=== PATIENT | male | born 1960 | race Caucasian/White ===

== ENCOUNTER 2016-12-03 07:58 | Outpatient (CLI) | payer OTHER ==
--- NOTE | 2016-12-03 08:21 | RAD ---
PA AND LATERAL CHEST: Date: 12-03-16 History: Dyspnea. Comparison: 10-27-16 FINDINGS: Cardiac silhouette and pulmonary vasculature are within normal limits. Lungs are expanded and clear. There has been no interval change from prior exam. IMPRESSION: No acute cardiopulmonary process. POS: [facility]
== END 2016-12-03 07:59 | disposition home or self-care (01) ==
LOC: RAD 07:58
PROVIDERS: ATTEND Internal Medicine Critical Care Medicine
DX: R06.00 Dyspnea, unspecified (principal)
CPT/HCPCS: 71020

== ENCOUNTER 2016-12-24 13:36 | Outpatient (CLI) | payer OTHER ==
--- NOTE | 2016-12-24 15:04 | RAD ---
PA AND LATERAL CHEST: History: Dyspnea. FINDINGS: Comparison is made with exam of 12-03-16. The heart size is normal. The lungs are expanded without focal areas of consolidation, pneumothorax or pleural effusions. There are mild degenerative changes in the spine. IMPRESSION: No radiographic evidence of acute cardiopulmonary process. POS: [facility]
--- NOTE | 2016-12-24 15:44 | NM ---
NUCLEAR MEDICINE VENTILATION PERFUSION SCAN: (V/Q SCAN) 12/24/16 HISTORY: 56-year-old male with dyspnea. TECHNIQUE: Xenon-133 gas dose: 7.5 millicuries. [id number] dose: 6.6 millicuries. The patient inhaled Xenon-133 gas, and dynamic ventilation scintigraphy was performed. [id number] wa s injected IV, and multiple perfusion scintigraphic views were obtained. FINDINGS: There are no moderate-sized or large perfusion defects. There are no significant ventilation/perfus ion mismatches. IMPRESSION: Low probability for pulmonary thromboembolism. jn [] POS: [facility]
== END 2016-12-24 13:37 | disposition home or self-care (01) ==
LOC: CP 13:36
PROVIDERS: ATTEND Internal Medicine Critical Care Medicine
DX: R06.00 Dyspnea, unspecified (principal)
CPT/HCPCS: 71020; 78582; 94010; 94727; 94729; A9540; A9558

== ENCOUNTER 2017-04-13 13:57 | Outpatient (CLI) | payer OTHER | END 2017-04-13 13:58 | disposition home or self-care (01) | LOC: BICMRI 13:57 | PROVIDERS: ATTEND Family Medicine | DX: S89.91XA Unspecified injury of right lower leg, initial encounter (principal); S80.11XA Contusion of right lower leg, initial encounter; S86.811A Strain of other muscle(s) and tendon(s) at lower leg level, right leg, initial encounter ==

== ENCOUNTER 2017-09-11 11:41 | Outpatient (CLI) | payer OTHER | END 2017-09-11 11:42 | disposition home or self-care (01) | LOC: BICULT 11:41 | PROVIDERS: ATTEND Internal Medicine Gastroenterology | DX: K29.60 Other gastritis without bleeding (principal); R14.0 Abdominal distension (gaseous) | CPT/HCPCS: 76700 ==

== ENCOUNTER 2017-12-28 07:32 | Outpatient (CLI) | payer OTHER ==
[2017-12-28] MEDS ORDERED: ISOVUE-370 76%-LOCM 1 ML ONE (10:09)
--- NOTE | 2017-12-28 11:27 | CT ---
CT CHEST WITH CONTRAST CT ABDOMEN WITH CONTRAST CT PELVIS WITH CONTRAST: HISTORY: Pain. Epigastric discomfort, R10.13. Other forms of dyspnea, R0609. COMPARISON: Ultrasound abdomen 09/11/2017. FINDINGS: The lungs are clear. No suspicious pulmonary nodule. No pneumothorax. No effusion. The thyroid is unremarkable. No aneurysmal dilatation of the aorta. No pericardial effusion. No me diastinal adenopathy. On the noncontrast portion of the abdomen and pelvis examination, there is no nephroureteral lithiasi s or hydroureteral nephrosis. No abnormal enhancing splenic mass. The pancreas is unremarkable. No retroperitoneal adenopathy. No dilated loops of large or small bowel. The appendix is visualized and is normal. No free intrape ritoneal gas or fluid. The skeleton is unremarkable.. The kidneys are unremarkable as well as the adrenal glands. Liver is unremarkable as well as the gallbladder. Paraspinal musculature is normal. IMPRESSION: Normal examination of the chest, abdomen, and pelvis. POS: [facility]
== END 2017-12-28 07:33 | disposition home or self-care (01) ==
LOC: BICCT 07:32
PROVIDERS: ATTEND Family Medicine
DX: E80.7 Disorder of bilirubin metabolism, unspecified (principal); R06.09 Other forms of dyspnea; R10.13 Epigastric pain; Z80.0 Family history of malignant neoplasm of digestive organs
CPT/HCPCS: 71260; 72193; 74170

== ENCOUNTER 2024-12-09 09:48 | Emergency (ER) | payer MEDICARE, OTHER ==
[2024-12-09 10:15] LABS: #Basophils 0.09 10x3/uL (0.0-0.2); #Eosinophils 0.19 10x3/uL (0.0-0.7); #Monocytes 0.63 10x3/uL (0.11-0.59); #Neutrophils 4.73 10x3/uL (1.40-6.50); %Basophils 1.2 % (0.0-1.0); %Eosinophils 2.5 % (0.0-10.0); %Lymphocytes 25.0 % (21.0-51.0); %Monocytes 8.3 % (0.0-10.0); %Neutrophils 62.7 % (42.0-75.0); Hematocrit 42.0 % (42.0-52.0); Hemoglobin 14.2 g/dL (14.0-18.0); Mean Corpuscular Hemoglobin 28.6 pg (27.0-31.0); Mean Corpuscular Volume 84.7 fL (78.0-98.0); Platelet Count 277 10x3/uL (130-400); Red Blood Cell (RBC) Count 4.96 mill/uL (4.70-6.10); White Blood Cell (WBC) Count 7.55 10x3/uL (4.8-10.8)
[2024-12-09] MEDS ORDERED: Ketorolac Tromethamine 30 MG (1 mL) VIAL ONE (10:18)
[2024-12-09 10:30] LABS: ALT (SGPT) 25 U/L (Less than 45); AST (SGOT) 45 U/L (11-34); Albumin 4.2 g/dL (3.1-4.5); Alkaline Phosphatase 103 U/L (40-110); Anion Gap 14 mmol/L (10-20); BUN (Urea Nitrogen) 21 mg/dL (8.4-25.7); Bilirubin, Total 1.1 mg/dL (0.3-1.2); Calc. Creatinine Clearance 0 mL/min (70-130); Calcium 9.2 mg/dL (7.8-10.44); Carbon Dioxide 24 mmol/L (23-31); Chloride 107 mmol/L (98-107); Globulin 2.8 g/dL (2.4-3.5); Glucose 127 mg/dL (80-115); Potassium 4.1 mmol/L (3.5-5.1); Sodium 141 mmol/L (136-145)
[2024-12-09] MEDS ORDERED: Ondansetron PF 4 MG/2 ML Vial ONE (10:55)
[2024-12-09 11:59] LABS: CAUTI Indications for Culture Dysuria,urgency,freq; Glucose, Urine (Dipstick) Normal (Negative); Leukocyte Negative Leu/uL (Negative); Protein, Urine (Dipstick) 50 mg/dL (Neg-Trace); Specific Gravity, Urine 1.031 (1.002-1.036)
[2024-12-09 12:11] LABS: Bacteria/HPF Rare-Few HPF (None Seen); Urine Culture Reflex No No
[2024-12-09] MEDS ORDERED: HYDROmorphone 0.5 MG/0.5 ML SYRINGE ONE (13:01)
== END 2024-12-09 14:00 | disposition home or self-care (01) ==
LOC: ERS 09:48
DX: N20.2 Calculus of kidney with calculus of ureter (principal); I25.10 Atherosclerotic heart disease of native coronary artery without angina pectoris; I10 Essential (primary) hypertension; E78.5 Hyperlipidemia, unspecified; Z95.5 Presence of coronary angioplasty implant and graft; Z79.899 Other long term (current) drug therapy
CPT/HCPCS: 74176; 80053; 81001; 85025; 87086; J1171; J1885; 96374; 96375